=== PATIENT | male | born 1950 | race Caucasian/White ===

== ENCOUNTER 2018-07-30 01:07 | Emergency (ER) | payer MEDICARE, SELFPAY ==
[2018-07-30 01:08] VITALS: BP 187/141; PULSE 83; RESP 22; TEMP 36.7; O2SAT 97; BMI 28.9
--- NOTE | 2018-07-30 01:09 | RAD_ITS ---
STUDY: X-RAY - RIGHT WRIST REASON FOR EXAM: Male, 68 years old. Right-sided wrist pain after fall. TECHNIQUE: 3 view(s) of the wrist were obtained. COMPARISON: Prior comparison studies are not available for review at this time. FINDINGS: There is deformity of the distal radius consistent with old healed fracture. There is degenerative arthrosis of the radiocarpal articulation. There is a positive ulnar variance. There is demineralization of the carpal bones. Normal carpal articulations. There is degenerative arthrosis of the carpometacarpal articulation of the thumb. Normal second through fifth carpometacarpal articulations. There is demineralization of the metacarpal bones. There is moderate soft tissue swelling. RAD/Wrist min 3 Views IMPRESSION: 1. Deformity of the distal radius suggests sequela of old fracture. A superimposed acute fracture is not excluded. 2. If there is still clinical concern for acute fracture, follow-up radiographs in 7-10 days maybe helpful in evaluating a healing radiographically occult fracture. 3. Osteopenia. 4. Degenerative changes of the wrist and thumb. Electronically Signed: Edna Wallace MD at 1:58 EST , Service support ,
[2018-07-30] MEDS: HYDROcodone Bitartrate/Apap 5/325 Tablet PO ×2 (01:16→02:25)
--- NOTE | 2018-07-30 02:04 | ED.DCSUM_ITS ---
- ER Visit Summary Date of Service: 07/30/18 Chief Complaint: Right wrist injury History of Present Illness: The patient is a 68 M presents to the emergency department right wrist injury. Patient was in his normal state of health. He does have history of prior fracture of the right radius. He was roller skating and fell. He tried catch himself with an outstretched hand. Since then, he had a lot of pain in the wrist. He did not strike his head. He denies other injury. He is otherwise been in his normal state of health. Physical Examination: Exam is relatively unremarkable. Patient has some swelling on the dorsum of the wrist. There is no obvious deformity. His pulses are normal. His sensation is preserved to light touch. There is no pain at the elbow pain at the shoulder. Test Results: [] Emergency Department Course and Treatment: Plain films were obtained of the wrist. There does appear to be sequelae of old fracture, but I do not see any new acute fracture. My suspicion is that the patient likely has underlying wrist sprain. There is no obvious deformity. I am going to place him in a Velcro wrist splint for comfort. He will given 24 hours of analgesics. He will continue ice and elevation. I did student support counselor him that if this worsens in any way he should follow-up for repeat x-rays. He is comfortable with this plan of care and will be discharged home. Treatment Plan: [] Disposition: Discharge Impression: 1. Right wrist sprain This note was generated with Ag[employer] dictation software. It may contain incorrect words, spelling, and punctuation that were not noted in review of the chart prior to signing ED Disposition - Plan for ED Patient: Instructions: ED Sprain Wrist Referrals: Abdiel Pemberton DO [Primary Care Provider] -
[2018-07-30 02:16] VITALS: BP 164/96; PULSE 89; RESP 16; O2SAT 98
== END 2018-07-30 02:26 | disposition home or self-care (01) ==
LOC: ED 01:31
PROVIDERS: Emergency Provider Emergency Medicine; Family Provider Family Medicine; PCP Family Medicine
DX: S63.501A Unspecified sprain of right wrist, initial encounter (principal); Z79.82 Long term (current) use of aspirin; W18.30XA Fall on same level, unspecified, initial encounter; Y93.51 Activity, roller skating (inline) and skateboarding; Y92.89 Other specified places as the place of occurrence of the external cause; Y99.8 Other external cause status
CPT/HCPCS: 73110; 99283

== ENCOUNTER → 2018-08-07 12:41 | Outpatient (CLI) | payer MEDICARE, SELFPAY ==
[2018-07-30 01:08] VITALS: BMI 28.9
--- NOTE | 2018-08-07 12:43 | RAD_ITS ---
STUDY: X-RAY - RIGHT WRIST REASON FOR EXAM: Male, 68 years old. Pain after a fall TECHNIQUE: 3 view(s) of the wrist were obtained. COMPARISON: 07/30/2018 FINDINGS: There is deformity of the distal radius consistent with old healed fracture. There is degenerative arthrosis of the radiocarpal articulation. There is a significantly positive ulnar variance. Intracarpal arthrosis. There is degenerative arthrosis of the carpometacarpal articulation of the thumb. Normal second through fifth carpometacarpal articulations. There is demineralization of the metacarpal bones. There is moderate soft tissue swelling. RAD/Wrist min 3 Views IMPRESSION: 1. Deformity of the distal radius suggests sequela of old fracture. A superimposed acute fracture is not excluded. 2. Degenerative changes of the wrist and thumb. 3. Significantly positive ulnar variance Electronically Signed: Richard Jara MD at 18:31 EDT , Service support ,
--- NOTE | 2018-08-07 12:44 | RAD_ITS ---
STUDY: X-RAY - RIGHT HAND REASON FOR EXAM: Male, 68 years old. Pain after a fall TECHNIQUE: 3 view(s) of the hand. COMPARISON: 2012 FINDINGS: Degenerative arthrosis noted at all visualized joint spaces, most notably at the base of the thumb, and in the proximal and distal interphalangeal joints of the hand. There is a significant positive ulnar variance which could cause pain in the right clinical setting. No demonstrated fracture. RAD/Hand Min 3 Views IMPRESSION: Polyarticular arthrosis Prominent positive ulnar variance Electronically Signed: Richard Jara MD at 18:30 EDT , Service support ,
== END ==
PROVIDERS: Family Provider Family Medicine; PCP Family Medicine; Referring Provider Family Medicine; Visit Provider Family Medicine
DX: M25.531 Pain in right wrist (principal); R07.81 Pleurodynia
CPT/HCPCS: 73110; 73130

== ENCOUNTER → 2018-08-15 15:49 | Outpatient (CLI) | payer MEDICARE, SELFPAY ==
[2018-07-30 01:08] VITALS: BMI 28.9
[2018-08-15 17:39] LABS: Absolute Lymphocyte Count 2.07 X10^3/ul (0.83-4.51); Absolute Neutrophil Count 6.1 X10^3/uL (2.0-7.7); Basophil# 0.07 X10^3/uL; Basophil% 0.7 % (0-1); Eosinophil# 0.27 X10^3/uL; Eosinophils% 2.8 % (0-5); Hemoglobin 16.1 g/dl (13.0-16.5); Lymphocyte # 2.07 X10^3/ul (4.0); Lymphocyte % 21.4 % (19-41); Mean Corp Hgb Conc 33.5 g/gl (32-36); Mean Corpuscular Hgb 29.1 pg (27.0-32.0); Mean Corpuscular Volume 86.6 fL (80-94); Mean Platelet Vol. 9.6 fl (6.2-12.0); Monocyte# 1.13 X10^3/uL; Monocyte% 11.7 % (0-10); Neutrophil # 6.08 X10^3/uL (2.7-7.7); Platelet Count 429 K/mm3 (150-450); RBC Distribution Width SD 40.9 fl (35.1-43.9); Red Blood Count 5.54 M/mm3 (4.6-6.2); White Blood Count 9.7 K/mm3 (4.4-11.0)
[2018-08-15 17:41] LABS: ALB/GLOB Ratio 0.9 RATIO (0.9-2.4); AST(SGOT) 25 U/L (15-37); Alanine Aminotransfer ALT/SGPT 58 U/L (16-61); Albumin, Serum 3.5 g/dL (3.2-5.0); Alkaline Phosphatase 102 U/L (45-117); Anion Gap 9 (5-15); BUN 17 mg/dL (7-18); BUN/Creat Ratio 16.7 RATIO (10-20); Calcium,Total 8.6 mg/dL (8.5-10.1); Chloride 107 mmol/L (98-107); Cholesterol 198 mg/dL (200); Creatinine, Serum 1.02 mg/dL (0.70-1.30); EST Glomerular Filtration Rate 77 mL/min (>60); Est Glom Filt Rate - Afr Amer 94 mL/min (>60); Globulin 4.1 g/dL (2.2-4.2); Glucose 103 mg/dL (74-106); High Density Lipoprotein 35 mg/dL; PSA,Total - Annual Screen 4.45 ng/mL (0.00-4.00); Protein, Total 7.6 g/dL (6.4-8.2); Sodium Level 140 mmol/L (136-145); Triglycerides 257 mg/dL; Very Low Density Lipoprotein 51 mg/dL (5-40)
[2018-08-15 17:58] LABS: POSITIVE COUNT NO; POSITIVE DIFFERENTIAL NO; POSITIVE MORPHOLOGY NO
== END ==
PROVIDERS: Family Provider Family Medicine; PCP Family Medicine; Visit Provider Family Medicine
DX: I10 Essential (primary) hypertension (principal); Z12.5 Encounter for screening for malignant neoplasm of prostate
CPT/HCPCS: 36415; 80053; 80061; 84153; 85025; G0103

== ENCOUNTER 2018-10-24 18:56 | Emergency (ER) | payer MEDICARE, SELFPAY ==
[2018-10-24 18:58] VITALS: BP 174/117; PULSE 103; PULSE 104; RESP 20; TEMP 36.5; O2SAT 97; BMI 29.3
--- NOTE | 2018-10-24 20:00 | ED.VISSUMM ---
- ER Visit Summary Date of Service: 10/24/18 Chief Complaint: Right foot and lower leg pain History of Present Illness: The patient is a 68 M history of peripheral arterial disease which is a catheter procedure done about [address] Yamil Mac to clean out his arteries. Patient states his been doing well today while walking in a store about 230 had some discomfort in his right leg that was cramping worse with movement. And walking. Mild numbness in his foot. He took 3 adult aspirin and he says he is feeling better now. He denies any significant pain currently. Said initially it was pretty severe. Denies any swelling. No trauma. Physical Examination: No acute distress. Vital signs stable afebrile. HEENT exam unremarkable. Neck nontender. Lungs clear to auscultation bilaterally. Heart regular rhythm no murmur. Abdomen soft nontender. Extremities moves all 4. His right foot is slightly cool to touch compared to the left think he does have cap refill is delayed and I cannot feel a DP or posterior tibial pulse. Pulses are palpable at the left foot and ankle.. He has normal dorsi plantar flexion. Normal touch sensation. Calf is nontender no edema. Left lower extremity unremarkable. Normal range of motion and strength to both lower extremities. Currently there is no signs of acute ischemic extremity. No compartment syndrome. Neurologically is awake and alert with no focal motor deficits. Test Results: RN Doppler of the right foot DP pulse was unable to get either DP or posterior tibial pulse on the right. CBC normal white count of 10. Hemoglobin 15. Chemistries unremarkable creatinine 1.1. CTA of his abdomen with runoff the abdomen is unremarkable basically. 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 Read by the radiologist. Emergency Department Course and Treatment: Patient will be started on a heparin bolus and drip. I spoke to the vascular surgeon in the transfer line and the hospitalist at [facility] and he will be transferred there. Vascular surgeon I specifically went over the patient's CTA results. Treatment Plan: Transfer to [facility] and started on a heparin drip. Disposition: Transfer Impression: Acute right lower extremity peripheral vascular disease with occlusion This note was generated with St[employer] dictation software. It may contain incorrect words, spelling, and punctuation that were not noted in review of the chart prior to signing ED Disposition - Plan for ED Patient: Referrals: Abdiel Pemberton DO [Primary Care Provider] -
--- NOTE | 2018-10-24 20:33 | CT_ITS ---
STUDY: CTA OF THE ABDOMINAL AORTA AND BILATERAL LOWER EXTREMITIES REASON FOR EXAM: Male, 68 years old. Numbness RADIATION DOSAGE (If Supplied By Facility): CTDIvol = ( 7.28 ) mGy, DLP = ( 1419.56 ) mGycm TECHNIQUE: Axial CT angiography multi-detector data acquisition was obtained following intravenous administration of 100ml IV Isovue 300. Axial images and MIP images were reconstructed from the axial data set. Post-processing of the angiographic images was performed, with multiplanar reformation and 3D reconstruction. Individualized dose optimization techniques were used for this CT. TECHNICAL QUALITY: Good COMPARISON: None. Descriptors of Narrowing: None (0%) Mild (< 50%) Moderate (50-70%) Severe (70-90%) Subtotal/Total Occlusion (90-100%) Non-Evaluable (technically non-diagnostic FINDINGS: Abdominal aorta: No demonstrated narrowing. Celiac and superior mesenteric arteries: No demonstrated narrowing. Inferior mesenteric artery: No demonstrated narrowing. Right renal artery(arteries): No demonstrated narrowing. Left renal artery(arteries): No demonstrated narrowing. Right common iliac artery: No demonstrated narrowing. Right external iliac artery: No demonstrated narrowing. Right internal iliac artery: No demonstrated narrowing. Left common iliac artery: No demonstrated narrowing. Left external iliac artery: No demonstrated narrowing. Left internal iliac artery: No demonstrated narrowing. RIGHT LOWER EXTREMITY Right common femoral artery: No demonstrated narrowing. Right profundus femoris: No demonstrated narrowing. Right superficial femoral: Complete occlusion. Right popliteal artery: Complete occlusion with aneurysm measuring 2 x 2.2 cm. Right tibioperoneal trunk: Severe narrowing with reconstitution distally. Right anterior tibial artery: No demonstrated narrowing. Right posterior tibial artery: Subtotal occlusion. Right peroneal artery: Moderate narrowing.. LEFT LOWER EXTREMITY Left common femoral artery: No demonstrated narrowing. Left profundus femoris: No demonstrated narrowing. Left superficial femoral: No demonstrated narrowing. Left popliteal artery: Moderate narrowing. Left tibioperoneal trunk: No demonstrated narrowing. Left anterior tibial artery: No demonstrated narrowing. Left posterior tibial artery: No demonstrated narrowing. Left peroneal artery: No demonstrated narrowing. There is decreased hepatic attenuation. No hepatic lesions are present in the visualized liver. No calcified gallstones are present. The pancreas, spleen, and right adrenal gland are normal. There is a left adrenal 1.2 cm nodule, indeterminate although statistically likely representing an adenoma. A subcentimeter cyst is present in the right kidney. There is no hydronephrosis. No renal stones are present. There is no evidence of bowel obstruction or inflammation. Colonic diverticulosis is present. There is no lymphadenopathy. There is no free fluid or free air present. Osseous structures are unremarkable in appearance. CT/CTA Abd w/Runoff W/WO Contrast IMPRESSION: Extensive right lower extremity occlusive arterial disease as detailed above, with areas of total occlusion and aneurysm of the popliteal artery. Moderate narrowing of the left popliteal artery. Fatty liver. Chronic diverticulosis. Left adrenal 1.2 cm nodule, indeterminate. Electronically Signed: West Garibay, at 21:39 EDT Tel , Service support ,
--- NOTE | 2018-10-24 20:36 | ED.RN ---
dopplered the pts right foot and unable to hear pulses, left foot with good pulses
[2018-10-24] MEDS: 0.9% Normal Saline 1,000 ML 999 ML IV (21:00)
[2018-10-24 21:03] VITALS: BP 173/107; PULSE 85; RESP 16; O2SAT 96
[2018-10-24 21:11] LABS: Hematocrit 42.9 % (40-54); Mean Corpuscular Hgb 29.4 pg (27.0-32.0); Mean Platelet Vol. 8.7 fl (6.2-12.0); Platelet Count 254 K/mm3 (150-450); RBC Distribution Width CV 12.8 % (11.6-14.6); RBC Distribution Width SD 38.8 fl (35.1-43.9); Red Blood Count 5.11 M/mm3 (4.6-6.2); White Blood Count 10.8 K/mm3 (4.4-11.0)
[2018-10-24 21:14] LABS: Scan Indicated on CBC? Y/N NO
[2018-10-24 21:34] LABS: Anion Gap 9 (5-15); BUN 20 mg/dL (7-18); BUN/Creat Ratio 17.4 RATIO (10-20); Calcium,Total 8.4 mg/dL (8.5-10.1); Chloride 107 mmol/L (98-107); Creatinine, Serum 1.15 mg/dL (0.70-1.30); EST Glomerular Filtration Rate 67 mL/min (>60); Est Glom Filt Rate - Afr Amer 81 mL/min (>60); Estimated Creatinine Clearance 56.25 ml/min; Glucose 94 mg/dL (74-106); Sodium Level 140 mmol/L (136-145)
[2018-10-24 21:55] VITALS: BP 160/99; PULSE 95; RESP 16; O2SAT 96
[2018-10-24] MEDS: Heparin Injection (Vial) 5,000 UNIT/ML VIAL 6000 UNIT IV (23:09)
[2018-10-24] MEDS: HEPARIN/D5w 25,000 UNITS 25,000 UNITS/250 ML IV.SOLN. 12 UNITS IV (23:13)
[2018-10-24 23:17] VITALS: BP 160/104; PULSE 78; RESP 16; O2SAT 96
[2018-10-24 23:19] LABS: Partial Thromboplast Time 34.5 Seconds (24.1-36.2)
[2018-10-24 23:32] VITALS: BP 160/104; PULSE 78; RESP 16; TEMP 36.4; O2SAT 96
== END 2018-10-25 00:10 | disposition short-term general hospital (02) ==
PROVIDERS: Emergency Provider Emergency Medicine; Family Provider Family Medicine; PCP Family Medicine
DX: I73.9 Peripheral vascular disease, unspecified (principal); Z87.891 Personal history of nicotine dependence
CPT/HCPCS: 75635; 80048; 85027; 85730; 96361; 96365; 96375; 99285; J7030; Q9967; A4216

== ENCOUNTER → 2019-08-21 11:48 | Outpatient (CLI) | payer MEDICARE, SELFPAY ==
[2019-08-21 15:15] LABS: Absolute Lymphocyte Count 2.51 X10^3/uL (0.83-4.51); Absolute Neutrophil Count 6.1 X10^3/uL (2.0-7.7); Basophil# 0.11 X10^3/uL; Eosinophil# 0.56 X10^3/uL; Eosinophils% 5.3 % (0-5); Hematocrit 48.9 % (40-54); Lymphocyte # 2.51 X10^3/ul (4.0); Lymphocyte % 23.8 % (19-41); Mean Corp Hgb Conc 32.7 g/dL (32-36); Mean Corpuscular Hgb 28.6 pg (27.0-32.0); Mean Corpuscular Volume 87.3 fL (80-94); Mean Platelet Vol. 9.4 fl (6.2-12.0); Monocyte# 1.24 X10^3/uL; Monocyte% 11.8 % (0-10); NRBC Flagged by Analyzer 0 % (0-5); Neutrophil # 6.08 X10^3/uL (2.7-7.7); Neutrophil % 57.6 % (47-70); Platelet Count 353 K/mm3 (150-450); RBC Distribution Width CV 12.7 % (11.6-14.6); RBC Distribution Width SD 40.3 fl (35.1-43.9); White Blood Count 10.6 K/mm3 (4.4-11.0)
[2019-08-21 15:30] LABS: ALB/GLOB Ratio 0.9 RATIO (0.9-2.4); AST(SGOT) 30 U/L (15-37); Alanine Aminotransfer ALT/SGPT 64 U/L (16-61); Albumin, Serum 3.5 g/dL (3.2-5.0); Alkaline Phosphatase 107 U/L (45-117); Anion Gap 8 (5-15); BUN 16 mg/dL (7-18); BUN/Creat Ratio 16.1 RATIO (10-20); Calcium,Total 8.5 mg/dL (8.5-10.1); Chloride 105 mmol/L (98-107); Cholesterol 111 mg/dL (200); EST Glomerular Filtration Rate 79 mL/min (>60); Est Glom Filt Rate - Afr Amer 96 mL/min (>60); Glucose 117 mg/dL (74-106); High Density Lipoprotein 35 mg/dL; PSA,Total - Annual Screen 2.98 ng/mL (0.00-4.00); Potassium 4.1 mmol/L (3.5-5.1); Protein, Total 7.5 g/dL (6.4-8.2); Sodium Level 139 mmol/L (136-145); Triglycerides 129 mg/dL; Very Low Density Lipoprotein 26 mg/dL (5-40)
[2019-08-21 17:43] LABS: Hemoglobin A1c 6.1 % (4.2-6.3)
== END ==
PROVIDERS: PCP Family Medicine; Referring Provider Family Medicine; Visit Provider Family Medicine
DX: I10 Essential (primary) hypertension (principal); R73.01 Impaired fasting glucose; Z51.81 Encounter for therapeutic drug level monitoring; Z12.5 Encounter for screening for malignant neoplasm of prostate
CPT/HCPCS: 36415; 80053; 80061; 83036; 84153; 85025; G0103

== ENCOUNTER 2020-02-02 10:06 | Emergency (ER) | payer MEDICARE, SELFPAY ==
[2020-02-02 10:06] VITALS: BP 146/103; PULSE 101; RESP 18; TEMP 36.4; O2SAT 98; BMI 30.2
--- NOTE | 2020-02-02 10:44 | RAD_ITS ---
STUDY: X-RAY - RIGHT HAND REASON FOR EXAM: Male, 69 years old. pt fell last night, swelling entire hand TECHNIQUE: 3 view(s) of the hand. COMPARISON: None. FINDINGS: Normal radiocarpal articulation. Normal distal radioulnar joint. Ulnar styloid fracture noted. Normal visualized carpal bones. Normal carpal articulations Normal carpometacarpal articulation of the thumb. Normal second through fifth carpometacarpal joints. On the PA view, there is cortical irregularity at the base of the fourth metacarpus with lucency extending to the articular surface proximally. Normal metacarpophalangeal joint of the thumb. Normal interphalangeal joint of the thumb. Normal proximal and distal phalanges of the thumb. Normal metacarpophalangeal joints of the second through fifth fingers. Normal proximal and distal interphalangeal joints of the second through fifth fingers. Normal phalanges of the second through fifth fingers. There is diffuse soft tissue swelling particularly along the dorsal hand. RAD/Hand Min 3 Views IMPRESSION: Possible nondisplaced fracture at the base of the fourth metacarpal. Soft tissue swelling. Electronically Signed: Anton Cunningham MD ([place]) at 11:31 EDT , Service support ,
--- NOTE | 2020-02-02 10:44 | RAD_ITS ---
STUDY: X-RAY - RIGHT WRIST REASON FOR EXAM: Male, 69 years old. pt fell last night, hand swelling TECHNIQUE: 3 view(s) of the wrist were obtained. COMPARISON: None. FINDINGS: Deformity of the distal radius compatible with old, healed fracture. An unhealed but old appearing ulnar styloid fracture is noted. Normal radiocarpal articulation. Normal distal radioulnar articulation. Normal carpal bones. Normal carpal articulations. Normal carpometacarpal articulation of the thumb. Normal second through fifth carpometacarpal articulations. There is irregularity at the base of the fourth metacarpal, described on hand x-ray. There is soft tissue swelling of the dorsal wrist. RAD/Wrist min 3 Views IMPRESSION: Old distal radial and ulnar fractures. No acute fracture of the wrist. Electronically Signed: Anton Cunningham MD ([place]) at 11:33 EDT , Service support ,
--- NOTE | 2020-02-02 10:44 | RAD_ITS ---
STUDY: X-RAY - LEFT ELBOW REASON FOR EXAM: Male, 69 years old. pt fell last night, swelling TECHNIQUE: 3 view(s) of the elbow. COMPARISON: None. FINDINGS: Normal visualized humerus, radius and ulna. Normal radiocapitellar and ulnotrochlear articulations. There is localized soft tissue swelling the posterior proximal forearm. RAD/Elbow min 3 Views IMPRESSION: Soft tissue swelling. No demonstrated fracture. Electronically Signed: Anton Cunningham MD ([place]oks) at 11:31 EDT , Service support ,
--- NOTE | 2020-02-02 10:44 | CT_ITS ---
STUDY: CT BRAIN WITHOUT CONTRAST REASON FOR EXAM: Male, 69 years old. FALL LAST NIGHT--HIT NOSE RADIATION DOSAGE (If Supplied By Facility): CTDIvol = ( 44.99 ) mGy, DLP = ( 829.85 ) mGycm TECHNIQUE: Transaxial CT imaging of the brain was performed without administration of intravenous contrast material. Individualized dose optimization techniques were used for this CT. COMPARISON: No relevant priors. FINDINGS: Normal soft tissue structures. Normal calvarium. Normal size ventricles and extra-axial spaces for the patient''s age. Normal white matter tracts of the cerebral hemispheres. Normal basal ganglia and thalami. Normal brainstem. Normal cerebellum. There is no intracranial hemorrhage. There are no findings of an acute ischemic infarction. Normal visualized paranasal sinuses. No nasal fracture is identified. Mild paranasal soft tissue swelling. CT/Brain/Head without Contrast IMPRESSION: 1. No acute intracranial hemorrhage or mass effect. 2. Paranasal soft tissue swelling without demonstrated fracture. Electronically Signed: Anton Cunningham MD ([place]) at 11:29 EDT , Service support ,
--- NOTE | 2020-02-02 10:48 | ED.DCSUM_ITS ---
History of Present Illness Chief Complaint: Upper Extremity Injury Informant: Patient Onset: Yesterday Mechanism/Context: Fall Narrative: Patient is a 69-year-old male on Plavix and aspirin presenting after mechanical fall. Patient was rollerskating yesterday when he lost his balance and fell. He landed forward and hit his nose as well as his right hand and left elbow. He also landed on his right knee. He did have some slight bleeding when he blew his nose yesterday but has resolved. Patient has significant pain and swelling of his right hand and wrist which is why he came to the emergency room today. He does have some slight swelling and bruising to his left elbow but states that it feels better. He currently denies any knee pain. He currently denies any facial or nose pain. No loss of consciousness with the fall. No other complaints at this time. He did not take anything for pain prior to arrival. Past Medical History - Allergies and Home Meds Allergies/Adverse Reactions: Allergies procaine HCl [From Novocain] Adverse Reaction (Verified 02/02/20 10:08) DOESN'T WORK Primary Care Physician: Ranjeet Adamson DO [STAFF PHYSICIAN] - Abdiel Pemberton DO [Primary Care Provider] - Past Medical History: - - Hyperlipidemia, hypertension Surgical History: noncontributory, - - Right hip Smoking Status: Former smoker - Family History Maternal Family History: Reports: Cancer, - - age 83 Paternal Family History: Reports: Heart Disease - age 80 Review of Systems General: Denies: Chills, Fever, Sweats Eyes: Denies: Visual changes - bilaterally, Diplopia ENT: Reports: - - mild epistaxis, resolved . Denies: Bilateral ear pain, Rhinorrhea, Sore throat Cardiovascular: Denies: Chest pain, Palpitations Respiratory: Denies: Dyspnea, Cough, Dyspnea on exertion Gastrointestinal: Denies: Abdominal pain, Nausea, Vomiting, Diarrhea, Melena, Hematochezia Genitourinary: Denies: Dysuria, Hematuria, Frequency Musculoskeletal: Reports: Swelling, Extremity Pain - right wrist, left elbow . Denies: Back pain Skin: Denies: Rash, Wounds Neurological: Denies: Headache, Weakness, Numbness Physical Exam Vital Signs/Narrative: Vital Signs Temp Pulse Resp BP Pulse Ox 02/02/20 10:06 97.5 F L 101 H 18 146/103 H 98 Inital Vital Signs reviewed: Yes General: Well nourished, Well developed Head: Normocephalic, Atraumatic Eyes: Perrl, EOMI ENT: TM's clear, No hemotympanum or drainage, No trauma, Nasal trauma, - - Soft tissue swelling over the bridge of the nose. Negative for: Hemotympanum, Otorr hea, Nasal septal hematoma Neck: Nontender, Full ROM Cardiovascular: Regular rate, Regular rhythm, No murmurs Respiratory: No distress, CTA bilaterally, Chest nontender Abdomen: Soft, Nontender, Nondistended, Normal bowel sounds Back: Nontender Extremeties: Right upper extremity. Patient has deformity of the right wrist but no pain to palpation normal range of motion. States it is chronic from a prior fracture. Right elbow is normal. There are significant soft tissue swelling and edema of the right hand diffusely with tenderness over the lateral hand but difficult to pinpoint. Some ecchymosis is present. Left upper extremity. Normal range of motion. No bony tenderness. Mild diffuse swelling and tenderness of the left elbow. Ecchymosis present over the left elbow as well. No pinpoint bony tenderness. No other acute abnormality seen. Skin: Normal color, No rash, - - See above, no abbrasions present Neurological: Alert, Oriented x3, Cranial nerves II-XII grossly intact, Normal Strength, Normal Sensation Psychological: Normal affect - Glascow Coma Scale Eye Opening: Spontaneous Motor: Obeys Commands Verbal: Oriented Coma Scale Total: 15 Diagnostic/Tx/Re-eval Clinical Impression(s) from Imaging Studies Brain CT 02/02/20 10:44 IMPRESSION: 1. No acute intracranial hemorrhage or mass effect. 2. Paranasal soft tissue swelling without demonstrated fracture. Electronically Signed: Anton Cunningham MD ([place]) at 11:29 EDT , Service support , Elbow X-Ray 02/02/20 10:44 IMPRESSION: Soft tissue swelling. No demonstrated fracture. Electronically Signed: Anton Cunningham MD ([place]) at 11:31 EDT , Service support , Hand X-Ray 02/02/20 10:44 IMPRESSION: Possible nondisplaced fracture at the base of the fourth metacarpal. Soft tissue swelling. Electronically Signed: Anton Cunningham MD ([place]) at 11:31 EDT , Service support , Wrist X-Ray 02/02/20 10:44 IMPRESSION: Old distal radial and ulnar fractures. No acute fracture of the wrist. Electronically Signed: Anton Cunningham MD ([place]) at 11:33 EDT , Service support , - Medical Decision Making Evaluated for injuries after mechanical fall yesterday. This occurred while patient was rollerskating. CT head obtained because patient did hit his head when he fell without loss of consciousness but is on Plavix and aspirin. This does not show any acute intracranial process. Patient is a normal neurologic exam however he does have a slight tic and asymmetry to his left face however he states this is chronic from a prior issue. Patient is found to have a possible fracture that is nondisplaced of the right fourth metacarpal. This coincides with his pain and a large amount of swelling still be treated as if it is a fracture. Patient is placed in fabricated ulnar gutter splint. He is given IM morphine for pain control in the ER. He is discharged home with a prescription for Sherrill as well as orthopedic follow-up. No other acute injuries are found. Patient is counseled on signs and symptoms requiring return to the emergency room. Patient verbalizes agreement and understand this plan. Patient discharged home in stable and improved condition. Procedures - Upper Extremity Splints Upper Extremity Splint: Orthoglass - ulnar gutter Splint Fabrication: Fabricated Location: Right ED Disposition - Plan for ED Patient: Disposition: Home or Assisted Living Diagnosis: Fracture of fourth metacarpal bone of right hand, Elbow contusion Instructions: ED ELBOW CONTUSION, ED Fx Hand Closed, ED Splint Care Fiberglass Prescriptions: Hydrocodone Bitart/Apap 5-325 [Sherrill 5MG-325MG] 1 tablet PO Q6H PRN PRN 3 Days #10 tablet PRN Reason: Pain Transmission Status: Received by [id number] Referrals: Abdiel Pemberton DO [Primary Care Provider] - Ranjeet Adamson DO [STAFF PHYSICIAN] - Additional Instructions: Please call orthopedic office on Tuesday to set up a follow-up appointment in the next week. Keep your splint on at all times. Do not get it wet. Return the emergency room if you develop any numbness, worsening pain or new symptoms.
[2020-02-02] MEDS: Morphine 4 MG/ML Syringe IM (10:52)
[2020-02-02 12:44] VITALS: RESP 17
--- NOTE | 2020-02-02 12:49 | ED.RN ---
called pt's granddaughter to give him a ride home.
== END 2020-02-02 12:50 | disposition home or self-care (01) ==
PROVIDERS: Emergency Provider Emergency Medicine; PCP Family Medicine
DX: S62.304A Unspecified fracture of fourth metacarpal bone, right hand, initial encounter for closed fracture (principal); S50.02XA Contusion of left elbow, initial encounter; I10 Essential (primary) hypertension; E78.5 Hyperlipidemia, unspecified; Z87.891 Personal history of nicotine dependence; Z79.02 Long term (current) use of antithrombotics/antiplatelets; Z79.82 Long term (current) use of aspirin; Z79.899 Other long term (current) drug therapy; W18.30XA Fall on same level, unspecified, initial encounter; Y93.51 Activity, roller skating (inline) and skateboarding; Y92.89 Other specified places as the place of occurrence of the external cause; Y99.8 Other external cause status
CPT/HCPCS: 29125; 70450; 73080; 73110; 73130; 96372; 99282

== ENCOUNTER → 2022-07-09 | Outpatient (CLI) | payer MEDICARE, SELFPAY ==
[2022-07-09 12:38] LABS: Absolute Lymphocyte Count 2.26 X10^3/uL (0.83-4.51); Absolute Neutrophil Count 5.6 X10^3/uL (2.0-7.7); Basophil% 1.1 % (0-1); Eosinophil# 0.35 X10^3/uL; Eosinophils% 3.7 % (0-5); Hematocrit 51.2 % (40-54); Lymphocyte # 2.26 X10^3/ul (0.83-4.51); Lymphocyte % 23.8 % (19-41); Mean Corp Hgb Conc 33.2 g/dL (32-36); Mean Corpuscular Volume 87.4 fL (80-94); Mean Platelet Vol. 9.8 fl (6.2-12.0); Monocyte# 1.15 X10^3/uL; Monocyte% 12.1 % (0-10); NRBC Flagged by Analyzer 0 % (0-5); Neutrophil # 5.56 X10^3/uL (2.7-7.7); Neutrophil % 58.4 % (47-70); Platelet Count 349 K/mm3 (150-450); RBC Distribution Width CV 12.4 % (11.6-14.6); RBC Distribution Width SD 39.3 fl (35.1-43.9); Red Blood Count 5.86 M/mm3 (4.6-6.2); White Blood Count 9.5 K/mm3 (4.4-11.0)
[2022-07-09 13:00] LABS: Hemoglobin A1c 8.9 % (3.8-5.6)
[2022-07-09 13:38] LABS: ALB/GLOB Ratio 0.9 RATIO (0.9-2.4); AST(SGOT) 31 U/L (15-37); Alanine Aminotransfer ALT/SGPT 83 U/L (16-61); Albumin, Serum 3.5 g/dL (3.2-5.0); Alkaline Phosphatase 106 U/L (45-117); Anion Gap 11 (5-15); BUN 19 mg/dL (7-18); BUN/Creat Ratio 17.3 RATIO (10-20); Calcium,Total 9.1 mg/dL (8.5-10.1); Chloride 105 mmol/L (98-107); Cholesterol 114 mg/dL (200); EST Glomerular Filtration Rate 70 mL/min (>60); Est Glom Filt Rate - Afr Amer 85 mL/min (>60); Globulin 3.9 g/dL (2.2-4.2); Glucose 236 mg/dL (74-106); High Density Lipoprotein 34 mg/dL; PSA,Total - Annual Screen 3.65 ng/mL (0.00-4.00); Potassium 3.7 mmol/L (3.5-5.1); Protein, Total 7.4 g/dL (6.4-8.2); Sodium Level 137 mmol/L (136-145); Triglycerides 343 mg/dL; Very Low Density Lipoprotein 69 mg/dL (5-40)
== END | disposition home or self-care (01) ==
LOC: MFPLAB 09:27 → BFHLAB 07-11 01:33
PROVIDERS: PCP Family Medicine; Visit Provider Family Medicine
DX: I10 Essential (primary) hypertension (principal); I73.9 Peripheral vascular disease, unspecified; R73.03 Prediabetes; E78.5 Hyperlipidemia, unspecified; Z12.5 Encounter for screening for malignant neoplasm of prostate
CPT/HCPCS: 36415; 80053; 80061; 83036; 84153; 85025; G0103

== ENCOUNTER → 2023-07-11 | Outpatient (CLI) | payer MEDICARE, SELFPAY ==
[2023-07-11 15:34] LABS: Absolute Lymphocyte Count 2.16 X10^3/uL (0.83-4.51); Absolute Neutrophil Count 5.1 X10^3/uL (2.0-7.7); Basophil% 1.1 % (0-1); Eosinophil# 0.35 X10^3/uL; Hematocrit 45.7 % (40-54); Hemoglobin 15.5 g/dL (13.0-16.5); Lymphocyte # 2.16 X10^3/ul (0.83-4.51); Lymphocyte % 24.8 % (19-41); Mean Corp Hgb Conc 33.9 g/dL (32-36); Mean Corpuscular Hgb 29.6 pg (27.0-32.0); Mean Corpuscular Volume 87.4 fL (80-94); Mean Platelet Vol. 9.3 fl (6.2-12.0); Monocyte# 0.94 X10^3/uL; Monocyte% 10.8 % (0-10); NRBC Flagged by Analyzer 0 % (0-5); Neutrophil % 58.7 % (47-70); Platelet Count 358 K/mm3 (150-450); RBC Distribution Width CV 12.7 % (11.6-14.6); Red Blood Count 5.23 M/mm3 (4.6-6.2); White Blood Count 8.7 K/mm3 (4.4-11.0)
[2023-07-11 15:55] LABS: Microalbumin,Random Urine 6.2 mg/L (NO RANGE EST.); Microalbumin:Creatinine Ratio 47.3 mg/g CRE (<30 mg/g CRE)
[2023-07-11 16:07] LABS: ALB/GLOB Ratio 1.1 RATIO (0.9-2.4); AST(SGOT) 35 U/L (15-37); Alanine Aminotransfer ALT/SGPT 88 U/L (16-61); Albumin, Serum 3.7 g/dL (3.2-5.0); Alkaline Phosphatase 89 U/L (45-117); Anion Gap 6 (5-15); BUN 13 mg/dL (7-18); BUN/Creat Ratio 11.9 RATIO (10-20); Calcium,Total 9.9 mg/dL (8.5-10.1); Chloride 108 mmol/L (98-107); Cholesterol 105 mg/dL (200); Creatinine, Serum 1.09 mg/dL (0.70-1.30); EST Glomerular Filtration Rate 71 mL/min (>60); Est Glom Filt Rate - Afr Amer 85 mL/min (>60); Globulin 3.5 g/dL (2.2-4.2); Glucose 177 mg/dL (74-106); High Density Lipoprotein 35 mg/dL; PSA,Total - Annual Screen 3.51 ng/mL (0.00-4.00); Potassium 3.9 mmol/L (3.5-5.1); Protein, Total 7.2 g/dL (6.4-8.2); Sodium Level 139 mmol/L (136-145); Triglycerides 144 mg/dL; Very Low Density Lipoprotein 29 mg/dL (5-40)
--- OUTSIDE RECORDS SUMMARY | 2023-07-11 17:33 | XMS RPT_ITS | CCD ---
Author Name Unknown Address [address] [place] [address] Organization [facility] Results Test Name Value Interpretation Reference Range Facil ity Summary Purpose Family History No Family History Records Found Advance Directives No Advanced Directives Records Found Additional Source Comments (unrecognized sect ion and content) No Status Records Found INFORMATION SOURCE (unrecogn ized section and content) FOR RECORDS PERTAINING TO PATIENTS WHO ARE OR HAVE BEEN ENROLLED IN A CHEMICAL DEPENDENCY/SUBSTANCEABUSE PROGRAM, SOME INFORMATION MAY BE OMITTED. This clinical summary was aggregated from multiple sources. Caution should be exercised in using it in the provision of clinical care. This summary normalizes information from multiple sources, and as a consequence, information in this document may materially change the coding, format and clinical context of patient data. In addition, data may be omitted in some cases. CLINICAL DECISIONS SHOULD BE BASED ON THE PRIMARY CLINICAL RECORDS. [employer] provides no warranty or guarantee of the accuracy or completeness of information in this document.
== END | disposition home or self-care (01) ==
LOC: BFHLAB 13:41
PROVIDERS: PCP Family Medicine; Visit Provider Family Medicine
DX: Z12.5 Encounter for screening for malignant neoplasm of prostate (principal); E11.9 Type 2 diabetes mellitus without complications; I10 Essential (primary) hypertension; E78.5 Hyperlipidemia, unspecified
CPT/HCPCS: 36415; 80053; 80061; 82043; 82570; 84153; 85025; G0103

== ENCOUNTER → 2024-12-03 | Outpatient (CLI) | payer MEDICARE, SELFPAY ==
[2024-12-03 15:37] LABS: Hematocrit 46.0 % (40-54); Hemoglobin 15.8 g/dL (13.0-16.5); Immature Granulocytes Count 0.080 X10^3/uL (0.0-0.0); Mean Corp Hgb Conc 34.3 g/dL (32-36); Mean Corpuscular Volume 86.6 fL (80-94); Mean Platelet Vol. 10.2 fl (6.2-12.0); NRBC Flagged by Analyzer 0 % (0-5); Platelet Count 321 K/mm3 (150-450); RBC Distribution Width CV 12.8 % (11.6-14.6); RBC Distribution Width SD 40.1 fl (35.1-43.9); Red Blood Count 5.31 M/mm3 (4.6-6.2); White Blood Count 9.5 K/mm3 (4.4-11.0)
[2024-12-03 16:10] LABS: AST(SGOT) 29 U/L (<=37); Alanine Aminotransfer ALT/SGPT 56 U/L (<=46); Albumin, Serum 4.2 g/dL (3.4-4.8); Alkaline Phosphatase 101 U/L (40-129); Anion Gap 14 (5-15); BUN 15 mg/dL (4-19); BUN/Creat Ratio 17.1 RATIO (10-20); Calcium,Total 10.4 mg/dL (7.6-11.0); Carbon Dioxide 19.4 mmol/L (21.0-32.0); Chloride 101 mmol/L (98-108); Cholesterol 97 mg/dL (<=200); Globulin 3.0 g/dL (2.2-4.2); Glucose 291 mg/dL (70-99); Low Density Lipoprotein Calc. 11 mg/dL; PSA,Total - Annual Screen 2.96 ng/mL (0.02-4.00); Potassium 3.9 mmol/L (3.3-5.1); Triglycerides 297 mg/dL; Very Low Density Lipoprotein 59 mg/dL (5-40); cholesterol:hdl ratio screen 3.55
[2024-12-03 19:24] LABS: Creatinine, Urine (random) 50.40 mg/dL (39.00-259.00); Microalbumin,Random Urine 18.1 mg/L (NO RANGE EST.)
== END | disposition home or self-care (01) ==
LOC: BFHLAB 11:21
PROVIDERS: PCP Family Medicine; Visit Provider Family Medicine
DX: Z12.5 Encounter for screening for malignant neoplasm of prostate (principal); E11.9 Type 2 diabetes mellitus without complications; I10 Essential (primary) hypertension; E78.5 Hyperlipidemia, unspecified
CPT/HCPCS: 36415; 80053; 80061; 82043; 82570; 83036; 84153; 85025; G0103

== ENCOUNTER 2025-05-07 11:51 | Day surgery (SDC) | payer MEDICARE, SELFPAY ==
--- NOTE | 2025-05-06 10:15 | PAT.ANE_ITS ---
Pre-Assessment Diagnosis/Proposed Procedure Planned Operative Procedure(s): CSCOPE Anesthesia History Anesthesia History - md physician dermatologist: Anesthesia History - md physician dermatologist Hx Hospitalization No 05/06/25 09:28 Any Problems With Anesthesia No 05/06/25 09:28 Cholinesterase deficiency No 05/06/25 09:28 You/Your Family Experience No 05/06/25 09:28 fever (hyperthermia) with Relationship Recent Exposure to Contagious Disease Does patient have nerve No 05/06/25 09:28 stimulator Patient instructed to have device shut off --Does patient have Pacemaker or ICD? When Was Last Pacemaker Check QUESTION #4 FULL TEXT: You/Your Family Experience fever (hyperthermia) with Anesthesia Last Oral Intake Last Oral intake: Last Oral Intake NPO since Meds taken in AM with sips of water? Meds patient instructed to take am of surgery PONV PONV - md physician dermatologist: PONV - md physician dermatologist Female No 05/06/25 09:28 HX of Motion Sickness No 05/06/25 09:28 HX of N/V After Surgery No 05/06/25 09:28 Non-Smoker Yes 05/06/25 09:28 Duration of Surgery greater No 05/06/25 09:28 than 60 minutes Number of Risk Factors 1 05/06/25 09:28 PONV Score Low Risk 05/06/25 09:28 Respiratory Assessment Respiratory Assessment - md physician dermatologist: Respiratory Tract Infection Hx - md physician dermatologist Hx Respiratory Tract Infection No 05/06/25 09:28 STOP Sleep Apnea STOP Sleep Apnea - md physician dermatologist: STOP Sleep Apnea - md physician dermatologist Hx Hypertension Yes: CONTROLLED WITH MED 05/06/25 09:28 Hx Sleep Apnea No 05/06/25 09:28 CPAP No 06/03/15 15:02 BIPAP No 06/03/15 15:02 Do you snore loudly (louder No 05/06/25 09:28 than talking or can be heard Do you often feel tired/ No 05/06/25 09:28 fatigued/ sleepy during daytime? Has anyone observed you stop No 05/06/25 09:28 breathing during sleep? STOP Results Negative 05/06/25 09:28 QUESTION #5 FULL TEXT : Do you snore loudly (louder than talking or can be heard through closed doors)? 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 Specify any problems Hx of Preganancy in last 3 N/A 05/06/25 09:28 Months Nurse Filling Out Transfusion [facility] 05/06/25 09:28 & Questions: Date: 05/06/25 05/06/25 09:28 Time: :05/06/25 09:28 Patient unable to answer at this time (ie. confused, unrespo /Reproduction History /Reproductive History - md physician dermatologist: /Reproductive Hx- md physician dermatologist Hx Now No 05/06/25 09:28 Gestational Age (in weeks): EDC: Hx Hx Para Hx Section SAB No 05/06/25 09:28 Does the father of the baby or his family experience fever w Father of the baby Malignant Hypertension history comment [facility] Medical History (Updated 05/06/25 @ 09:37 by Dorothy Oliveros) Loss of hearing Wears glasses No natural teeth Ringworm Rash Arthritis High cholesterol Difficulty chewing Shortness of breath on exertion Former smoker History of aneurysm Cataracts, bilateral Back problem Popliteal aneurysm Femur fracture Spastic ectropion of left eye Elevated PSA Byers palsy Eczema Seborrheic dermatitis Poor dentition Bilateral hearing loss PAD (peripheral artery disease) Type 2 diabetes mellitus Positive FIT (fecal immunochemical test) Home Medications ?Medication ?Instructions ?Recorded ?Last Taken ?Type amlodipine 5 mg tablet 5 mg PO DAILY 02/02/20 Unkno wn History aspirin 81 mg chewable tablet 81 mg PO DAILY@0800 09/0 10/16 Unknown History atorvastatin 40 mg tablet 40 mg PO QHS 02/02/20 Unknow n History metformin 1,000 mg tablet 1,000 mg PO BID 02/28/25 Unk nown History Allergy/AdvReac Type Severity Reaction Status Date / Time procaine HCl (From Novocain) AdvReac DOESN'T Verified 05/06/25 09:26 WORK Family History (Updated 04/11/25 @ 14:28 by Mile Florian) Father Myocardial infarction CVA (cerebral vascular accident) Grandfather Myocardial infarction CVA (cerebral vascular accident) Grandmother CVA (cerebral vascular accident) Surgical History (Updated 05/06/25 @ 09:37 by Dorothy Oliveros) History of angioplasty Previous back surgery History of knee surgery Social History (Updated 04/11/25 @ 14:26 by Mile Florian) Smoking Status: Former smoker alcohol intake: never substance use type: does not use what type of physical activity do you participate in: none Audit: Pertinent Findings Pertinent Findings EKG Perinent findings: 05/31/2015. Sinus rhythm with frequent PVCs. 81 bpm. Additional pertinent findings: Note patient is being treated for ringworm around neck area. He has been informed that this should be no reason to delay the procedure. Recommendation Anesthesia Recommendation Anesthesia recommendation: OPTIMIZED for anesthesia
[2025-05-07] VITALS (9 sets, daily range): BP systolic 118–152; BP diastolic 75–88; PULSE 66–83; RESP 16; TEMP 36.1–36.2; O2SAT 96–100; BMI 29.6
[2025-05-07] MEDS: Lactated Ringers 1,000 ML 15 ML IV (12:23)
--- NOTE | 2025-05-07 12:33 | PCM.HP.STD ---
[facility] - General General Date of Admission: 05/07/25 Date of Service: 05/07/25 Chief Complaint: FIT positive HPI Narrative FATOUMATA JOYCE, is a 75 M who presents [ Chief Complaint: FIT positive Patient referred from primary care provider due to positive FIT. He does not see any blood in his stool. Patient denies any recent changes in his bowel movements. He has at least 1 bowel movement daily. He has occasional loose stools. He thinks his brother and uncle may have had colon cancer but is unsure. He has never had a colonoscopy before. ] [facility] Medical History Loss of hearing Wears glasses No natural teeth Ringworm Rash Arthritis High cholesterol Difficulty chewing Shortness of breath on exertion Former smoker History of aneurysm Cataracts, bilateral Back problem Popliteal aneurysm Femur fracture Spastic ectropion of left eye Elevated PSA Byers palsy Eczema Seborrheic dermatitis Poor dentition Bilateral hearing loss PAD (peripheral artery disease) Type 2 diabetes mellitus Positive FIT (fecal immunochemical test) Home Medications ?Medication ?Instructions ?Recorded ?Last Taken ?Type amlodipine 5 mg tablet 5 mg PO DAILY 02/02/20 05/06/25 History aspirin 81 mg chewable tablet 81 mg PO DAILY@0800 02/02/20 05/05/25 History atorvastatin 40 mg tablet 40 mg PO QHS 02/02/20 Unknown History metformin 1,000 mg tablet 1,000 mg PO BID 02/28/25 Unknown History Allergy/AdvReac Type Severity Reaction Status Date / Time procaine HCl (From Novocain) AdvReac DOESN'T Verified 05/07/25 12:19 WORK Family History Father Myocardial infarction CVA (cerebral vascular accident) Grandfather Myocardial infarction CVA (cerebral vascular accident) Grandmother CVA (cerebral vascular accident) Surgical History History of angioplasty Previous back surgery History of knee surgery Social History Smoking Status: Former smoker alcohol intake: never substance use type: does not use what type of physical activity do you participate in: none ROS Constitutional Constitutional: Denies fatigue, fever(s), poor appetite, weight gain or weight loss Gastrointestinal Gastrointestinal: Denies belching, bloating, change in bowel habits, change in stool character, chewing difficulty, coffee ground emesis, constipation, cramping, diarrhea, dyspepsia, dysphagia, early satiety, excessive flatus, fecal incontinence, heartburn, hematemesis, hematochezia, hemorrhoids, loose stools, melena, nausea, odynophagia, rectal bleeding, tenesmus, vomiting or weight changes Vital Signs Vital Signs Vital Signs: 05/07/25 12:20 05/07/25 12:20 05/07/25 12:20 Temperature 97 F L Temperature Source Temporal Pulse Rate 83 Respiratory Rate 16 Respiratory Pattern Normal Blood Pressure 152/88 H Blood Pressure Mean 109 Blood Pressure Source Monitor Blood Pressure Position Semi-Fowlers Blood Pressure Location Right Arm Baseline BP 152/88 Pulse Ox 100 Oxygen Delivery Method Room Air Weight Weight: 189 lb Body Mass Index (BMI) 29.6 Physical Exam Const alert, oriented x3, no apparent distress and healthy appearing General Appearance: cooperative GI normal to inspection, nondistended, normoactive bowel sounds, soft to palpation, non-tender and non-distended Percussion: normal to percussion Rectal Exam: deferred Assessment & Plan Assessment/Plan (1) Positive FIT (fecal immunochemical test): PLAN: Assessment and Plan Assessment and Plan (1) Positive FIT (fecal immunochemical test): Status: Acute Plan: Fatoumata is a 75-year-old male patient with past medical history of vascular disease, diabetes, hip fracture and hypertension here today for evaluation. Patient recently had a positive FIT and was referred from primary care physician. Patient has never had a colonoscopy. He denies any recent changes in his bowel habits, blood in his stool or unintentional weight loss. Patient was agreeable to undergo colonoscopy and was scheduled for this today. - Colonoscopy - Follow-up as needed
--- NOTE | 2025-05-07 12:41 | PRE.ANES_ITS ---
ASA Classification* ASA Classification ASA Classification: 2 Assessment & Plan Anesthesia* Anesthesia Assessment Anesthesia Assessment: Discussed sedation and/or anesthesia options, risks, benefits, and alternatives with patient/parents/legal guardian/POA. Questions invited. The patient/parents/legal guardian/POA seems to understand and agrees to proceed with anesthesia plan. Reviewed the physical assessment, medical history, allergy history and patient home medications list prior to surgery/procedure/anesthetic and documented any changes. Performed airway and anesthesia risk assessments. Anesthesia Type Anesthesia Type: MAC History Source History Obtained from:: Patient and Chart Anesthesia Focused Assessment* Temperature: 97 F Pulse Rate: 83 Blood Pressure: 152/88 Respiratory Rate: 16 Pulse Ox: 100 Oxygen Delivery Method: Room Air Airway Assessment Mouth opens: >3 cm Mallampati Score: II Teeth Condition: Dentures (Edentulous) Neck Range of motion (ROM): Limited ROM Labs Anesthesia Preop lab: CBC WBC, (4.4-11.0) 9.5 K/mm3 12/03/24, 11: RBC, (4.6-6.2) 5.31 M/mm3 12/03/24, 11:22 Hgb, (13.0-16.5) 15.8 g/dL 12/03/24, : Hct, (40-54) 46.0 % 12/03/24, : Plt Count, (150-450) 321 K/mm3 12/03/24, 11:22 CHEMISTRY Potassium, (3.3-5.1) 3.9 mmol/L 12/03/24, :22 Sodium, (133-145) 134 mmol/L 12/03/24, 11:22 Magnesium, (1.8-2.4) 1.5 mg/dL L 06/01/15, 16:57 BUN, (4-19) 15 mg/dL 12/03/24, 11:22 Creatinine, (0.70-1.20) 0.87 mg/dL 12/03/24, 11:22 Glucose, (70-99) 291 mg/dL H 12/03/24, 11:22 TSH, (0.358-3.74) 1.65 uIU/mL 06/01/15, 16:57 COAG PT, (11.7-14.9) 12.9 SECONDS 05/31/15, 16:50 Pre-Assessment Diagnosis/Proposed Procedure Planned Operative Procedure(s): CSCOPE Anesthesia History Anesthesia History - scientific writer: Anesthesia History - scientific writer Hx Hospitalization No 05/06/25 09:28 Any Problems With Anesthesia No 05/06/25 09:28 Cholinesterase deficiency No 05/06/25 09:28 You/Your Family Experience No 05/06/25 09:28 fever (hyperthermia) with Relationship Recent Exposure to Contagious Disease Does patient have nerve No 05/06/25 09:28 stimulator Patient instructed to have device shut off --Does patient have Pacemaker No 05/07/25 12:20 or ICD? When Was Last Pacemaker Check QUESTION #4 FULL TEXT: You/Your Family Experience fever (hyperthermia) with Anesthesia Last Oral Intake Last Oral intake: Last Oral Intake NPO since 10:00 05/07/25 12:20 Meds taken in AM with sips of water? Meds patient instructed to take am of surgery PONV PONV - scientific writer: PONV - scientific writer Female No 05/06/25 09:28 HX of Motion Sickness No 05/06/25 09:28 HX of N/V After Surgery No 05/06/25 09:28 Non-Smoker Yes 05/06/25 09:28 Duration of Surgery greater No 05/06/25 09:28 than 60 minutes Number of Risk Factors 1 05/06/25 09:28 PONV Score Low Risk 05/06/25 09:28 Height & Weight Height & Weight: Anesthesia: Height & Weight Height 5 ft 7 in 05/07/25 12:20 Weight: 85.729 kg 05/07/25 12:20 Body Mass Index (BMI) 29.6 05/07/25 12:20 Respiratory Assessment Respiratory Assessment - scientific writer: Respiratory Tract Infection Hx - scientific writer Hx Respiratory Tract Infection No 05/06/25 09:28 STOP Sleep Apnea STOP Sleep Apnea - scientific writer: STOP Sleep Apnea - scientific writer Hx Hypertension Yes: CONTROLLED WITH MED 05/06/25 09:28 Hx Sleep Apnea No 05/06/25 09:28 CPAP No 06/03/15 15:02 BIPAP No 06/03/15 15:02 Do you snore loudly (louder No 05/06/25 09:28 than talking or can be heard Do you often feel tired/ No 05/06/25 09:28 fatigued/ sleepy during daytime? Has anyone observed you stop No 05/06/25 09:28 breathing during sleep? STOP Results Negative 05/06/25 09:28 QUESTION #5 FULL TEXT : Do you snore loudly (louder than talking or can be heard through closed doors)? 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 Specify any problems Hx of Preganancy in last 3 N/A 05/06/25 09:28 Months Nurse Filling Out Transfusion [facility] 05/06/25 09:28 & Questions: Date: 05/06/25 05/06/25 09:28 Time: 09:29 05/06/25 09:28 Patient unable to answer at this time (ie. confused, unrespo /Reproduction History /Reproductive History - scientific writer: /Reproductive Hx- scientific writer Hx Now No 05/06/25 09:28 Gestational Age (in weeks): EDC: Hx Hx Para Hx Section SAB No 05/06/25 09:28 Does the father of the baby or his family experience fever w Father of the baby Malignant Hypertension history comment Active Medications Active Medications: Current Medications Generic Name Dose Route Start Last Admin Trade Name Freq PRN Reason Stop Dose Admin Lactated Ringer's 1,000 mls @ 15 mls/hr 05/07/25 12:00 05/07/25 12:23 IV 15 mls/hr .Q48H SHAYNA Administration PFS Medical History Loss of hearing Wears glasses No natural teeth Ringworm Rash Arthritis High cholesterol Difficulty chewing Shortness of breath on exertion Former smoker History of aneurysm Cataracts, bilateral Back problem Popliteal aneurysm Femur fracture Spastic ectropion of left eye Elevated PSA Byers palsy Eczema Seborrheic dermatitis Poor dentition Bilateral hearing loss PAD (peripheral artery disease) Type 2 diabetes mellitus Positive FIT (fecal immunochemical test) Home Medications ?Medication ?Instructions ?Recorded ?Last Taken ?Type amlodipine 5 mg tablet 5 mg PO DAILY 02/02/2005/06 History aspirin 81 mg chewable tablet 81 mg PO DAILY@0800 10/1605/05/25 History atorvastatin 40 mg tablet 40 mg PO QHS 02/02/20 Unknow n History metformin 1,000 mg tablet 1,000 mg PO BID 02/28/25 Unk nown History Allergy/AdvReac Type Severity Reaction Status Date / Time procaine HCl (From Novocain) AdvReac DOESN'T Verified 05/07/25 12:19 WORK Family History Father Myocardial infarction CVA (cerebral vascular accident) Grandfather Myocardial infarction CVA (cerebral vascular accident) Grandmother CVA (cerebral vascular accident) Surgical History History of angioplasty Previous back surgery History of knee surgery Social History Smoking Status: Former smoker alcohol intake: never substance use type: does not use what type of physical activity do you participate in: none Review of Systems (Anesthesia) ROS Narrative System reviewed and no additional complaints, except as documented.
--- NOTE | 2025-05-07 13:00 | COLBX_PTH ---
PATIENT: FATOUMATA JOYCE LOC: EN U#:[id number] AGE/SX: 75/M ROOM: RE05/07/[address]: Dr. Glenn Crystal DO : 1950 BED: DIS: 05/07/2025 SPEC #: [id number] RECD: 05/07/25 15:03 STATUS: ELMER RERobert #: [id number] ANA: 05/07/25 13:[address]: Glenn Crystal DEPT: SURGICAL PATHOLOGY RECD BY: Hanh Lopez ENTERED: 05/08/25 06:42 SP TYPE: COLON BX OTHR DR: Dr. Abdiel Pemberton DO Tissues: A - COLON BIOPSY B - COLON BIOPSY C - Sigmoid colon biopsy D - Rectum, NOS Procedures: Surgery Specimen Level IV HEADER OPERATION: Colonoscopy, polypectomy, biopsy, clip PRE-OP DIAGNOSIS: Positive fecal immunochemical test TISSUE SUBMITTED: A- Hepatic flexure polyp, B- Splenic flexure polyp biopsy, C- Sigmoid polyp, D- Rectal polyp MICROSCOPIC DIAGNOSIS A. Colon, hepatic flexure, polyp, biopsy: - Tubular adenoma. B. Colon, splenic flexure, polyp, biopsy: - Tubular adenoma. C. Colon, sigmoid, polyp, biopsy: - Tubulovillous adenoma; the assessable surgical margin appears free of dysplasia. - Tubular adenoma. D. Rectum, polyp, biopsy: - Tubulovillous adenoma with focal high grade dysplasia, multiple fragments. - Prolapse features with misplaced epithelium - see note. Note: No unequivocal stalk invasion is observed (multiple deeper sections examined). MICROSCOPIC DESCRIPTION Slides are reviewed. GROSS DESCRIPTION A. Received in fixative is one container labeled with the patient's name and designated Hepatic flexure polyp. The specimen consists of multiple irregular fragments of hanson tissue that in aggregate measure 1 x 0.3 x 0.1 cm. The specimen is totally submitted in one cassette. B. Received in fixative is one container labeled with the patient's name and designated Splenic flexure polyp biopsy. The specimen consists of one irregular fragment of hanson tissue that measures 0.7 cm. The specimen is totally submitted in one cassette. C. Received in fixative is one container labeled with the patient's name and designated Sigmoid polyp. The specimen consists of a 0.4 cm hanson tissue fragment and a 0.8 x 0.7 x 0.6 cm red granular sessile polyp. The resection margin of the polyp is inked black and it is serially sectioned. Entirely submitted in 2 cassettes. D. Received in fixative is one container labeled with the patient's name and designated Rectal polyp. The specimen consists of 3 hanson-pink to red, lobulated sessile polyps, 0.7 x 0.7 x 0.2 cm to 1.1 x 1.0 x 0.9 cm. The resection margins are differentially inked (green/black/orange) and sectioned. Entirely submitted in 2 cassettes, with the 2 smaller polyps in cassette A1. NE 05/07/2025 CPT:03580h2
--- NOTE | 2025-05-07 14:20 | OP.COLON_ITS ---
Patient Name: Gerald Plascencia Procedure Date: 05/07/2025 1:41 PM Date of : 1950 Age: 75 Procedure: Colonoscopy Indications: Screening for colorectal malignant neoplasm Providers: Glenn Crystal DO Referring MD: Abdiel Pemberton Medicines: Monitored Anesthesia Care Patient Profile: This is a 75 year old male. Refer to note in patient chart for documentation of history and physical. Last Colonoscopy: none. The patient's first colonoscopy is today. Complications: No immediate complications. Procedure: Pre-Anesthesia Assessment: - Prior to the procedure, a History and Physical was performed, and patient medications and allergies were reviewed. The patient is competent. The risks and benefits of the procedure and the sedation options and risks were discussed with the patient. All questions were answered and informed consent was obtained. Patient identification and proposed procedure were verified by the physician in the pre-procedure area. Mental Status Examination: alert and oriented. Airway Examination: normal oropharyngeal airway and neck mobility. Respiratory Examination: clear to auscultation. CV Examination: normal. Prophylactic Antibiotics: The patient does not require prophylactic antibiotics. Prior Anticoagulants: The patient has taken no anticoagulant or antiplatelet agents except for NSAID medication. ASA Grade Assessment: II - A patient with mild systemic disease. After reviewing the risks and benefits, the patient was deemed in satisfactory condition to undergo the procedure. The anesthesia plan was to use monitored anesthesia care (MAC). Immediately prior to administration of medications, the patient was re-assessed for adequacy to receive sedatives. The heart rate, respiratory rate, oxygen saturations, blood pressure, adequacy of pulmonary ventilation, and response to care were monitored throughout the procedure. The physical status of the patient was re-assessed after the procedure. After I obtained informed consent, the scope was passed under direct vision. Throughout the procedure, the patient's blood pressure, pulse, and oxygen saturations were monitored continuously. The Colonoscope was introduced through the anus and advanced to the cecum, identified by appendiceal orifice and ileocecal valve. The colonoscopy was performed without difficulty. The patient tolerated the procedure well. The quality of the bowel preparation was adequate. The ileocecal valve, appendiceal orifice, and rectum were photographed. Scope In: 1:52:47 PM Scope Withdrawal Time 0 hours 16 minutes 47 seconds Scope Out: 2:11:58 PM Total Procedure Duration Time 0 hours 19 minutes 11 seconds Findings: The perianal and digital rectal examinations were normal. Four sessile polyps were found in the rectum and sigmoid colon. The polyps were 10 mm in size. These polyps were removed with a hot snare. Resection and retrieval were complete. Verification of patient identification for the specimen was done. Estimated blood loss was minimal. To prevent bleeding after the polypectomy, one hemostatic clip was successfully placed. 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 There was no bleeding at the end of the procedure. A 9 mm polyp was found in the hepatic flexure. The polyp was sessile. The polyp was removed with a hot snare. Resection and retrieval were complete. Verification of patient identification for the specimen was done. Estimated blood loss was minimal. Two sessile polyps were found in the splenic flexure. The polyps were 5 mm in size. These polyps were removed with a jumbo cold forceps. Resection and retrieval were complete. Verification of patient identification for the specimen was done. Estimated blood loss was minimal. A 3 mm polyp was found in the descending colon. The polyp was sessile. Coagulation for destruction of remaining portion of lesion using monopolar probe was successful. Estimated blood loss was minimal. Multiple small and large-mouthed diverticula were found in the recto-sigmoid colon, sigmoid colon, descending colon and splenic flexure. The exam was otherwise without abnormality on direct and retroflexion views. Impression: - Four 10 mm polyps in the rectum and in the sigmoid colon, removed with a hot snare. Resected and retrieved. Clip was placed. 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 - One 9 mm polyp at the hepatic flexure, removed with a hot snare. Resected and retrieved. - Two 5 mm polyps at the splenic flexure, removed with a jumbo cold forceps. Resected and retrieved. - One 3 mm polyp in the descending colon. Treated with a monopolar probe. - Diverticulosis in the recto-sigmoid colon, in the sigmoid colon, in the descending colon and at the splenic flexure. - The examination was otherwise normal on direct and retroflexion views. Recommendation: - Discharge patient to home. - Resume previous diet. - Continue present medications. - Await pathology results. - Repeat colonoscopy in 1 year for surveillance. Procedure Code(s): --- Professional --- 59554, Colonoscopy, flexible; with ablation of tumor(s), polyp(s), or other lesion(s) (includes pre- and post-dilation and guide wire passage, when performed) 10177, 59, Colonoscopy, flexible; with removal of tumor(s), polyp(s), or other lesion(s) by snare technique 27254, 59, Colonoscopy, flexible; with biopsy, single or multiple CPT copyright 2021 [employer]. All rights reserved. The codes documented in this report are preliminary and upon process design engineer review may be revised to meet current compliance requirements. Glenn Crystal DO 05/07/2025 2:19:35 PM This report has been signed electronically. Number of Addenda: 0 Note Initiated On: 05/07/2025 1:41 PM
--- NOTE | 2025-05-07 14:20 | OP.PROVAT_ITS ---
05/07/2025 Abdiel Pemberton [address] [place] [address] Re : Colonoscopy procedure for Gerald Plascencia Dear Dr. Pemberton This procedure was performed on Wednesday, May 07, 2025. My impressions and recommendations are as follows: Impressions : - Four 10 mm polyps in the rectum and in the sigmoid colon, removed with a hot snare. Resected and retrieved. Clip was placed. 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 - One 9 mm polyp at the hepatic flexure, removed with a hot snare. Resected and retrieved. - Two 5 mm polyps at the splenic flexure, removed with a [employer] cold forceps. Resected and retrieved. - One 3 mm polyp in the descending colon. Treated with a monopolar probe. - Diverticulosis in the recto-sigmoid colon, in the sigmoid colon, in the descending colon and at the splenic flexure. - The examination was otherwise normal on direct and retroflexion views. Recommendations : - Discharge patient to home. - Resume previous diet. - Continue present medications. - Await pathology results. - Repeat colonoscopy in 1 year for surveillance. My findings are described in the full procedure note, which is enclosed. If I can be of further assistance, please feel free to contact me at . Sincerely, Glenn Crystal, 05/07/2025 2:19:35 PM This report has been signed electronically.
--- NOTE | 2025-05-07 14:26 | PCM.POST.ANE ---
Anesthesia: Postop Eval I Current Vital Signs Temperature: 97 F Pulse Rate: 74 Blood Pressure: 118/77 Respiratory Rate: 16 Pulse Ox: 96 Oxygen Delivery Method: Room Air Assessment Airway patent: Yes Spontaneous unlabored respirations: Yes Mental status: Asleep nausea: No Vomiting: No Anesthesia Complication: No Fluid Hydration Crystalloid volume administer (ml): 300 Total IV fluid infused: 300 Progress Note Anesthesia document: Postop Eval 1 completed: Yes
--- NOTE | 2025-05-07 15:29 | PCM.POSTANE2 ---
Anesthesia Postop Eval I Sum Postop Eval Completion status Anesthesia document: Postop Eval 1 completed: Yes Anesthesia Postop Eval I Summary Anesthesia Postop Eval I Summary: Anesthesia Postop Eval I: Assessment Summary Airway patent Yes 05/07/25 14:27 [email or web address] Spontaneous unlabored Yes 05/07/25 14:27 [email or web address] respirations Mental status Asleep 05/07/25 14:27 [email or web address] nausea No 05/07/25 14:27 [email or web address] Vomiting No 05/07/25 14:27 [email or web address] Anesthesia Postop Eval I: Fluid Summary Crystalloid volume administer 300 05/07/25 14:27 [email or web address] (ml) Colloids volume administered ( ml) Blood Product volume administered (ml) Total IV fluid infused 300 05/07/25 14:27 [email or web address] Anesthesia Postop Eval I: Summary Notes Anesthesia Complication No 05/07/25 14:27 [email or web address] Anesthesia Complication Comment: Post-operative progress note Anesthesia: Postop Eval II Evaluation Mental status: Awake and Calm Pain Level: 1 nausea: No Vomiting: No Complications Anesthesia Complication: No
== END 2025-05-07 15:07 | disposition home or self-care (01) ==
LOC: EN 11:52 → AC 11:54
PROVIDERS: PCP Family Medicine; Referring Provider Family Medicine; Visit Provider Internal Medicine Gastroenterology
PROC: 0DJD8ZZ Inspection of Lower Intestinal Tract, Via Natural or Artificial Opening Endoscopic (ICD-10-PCS; CPT 45378; principal; 2025-05-07 12:55)
DX: D12.3 Benign neoplasm of transverse colon (principal); E11.9 Type 2 diabetes mellitus without complications; K57.30 Diverticulosis of large intestine without perforation or abscess without bleeding; Z79.84 Long term (current) use of oral hypoglycemic drugs; E78.00 Pure hypercholesterolemia, unspecified; Z87.891 Personal history of nicotine dependence; Z79.82 Long term (current) use of aspirin; I10 Essential (primary) hypertension; Z79.899 Other long term (current) drug therapy; D12.5 Benign neoplasm of sigmoid colon; D12.8 Benign neoplasm of rectum
CPT/HCPCS: 45380; 45385; 45388; 82962; 88305; J2405